=== PATIENT | male | born 1970 | race Caucasian/White ===

== ENCOUNTER 2021-06-17 06:54 | Inpatient (IN) ==
[2021-06-17] MEDS ORDERED: HYDROmorphone INJ 1 MG/ML SYRINGE IM STA (07:09)
--- NOTE | 2021-06-17 07:17 | Emergency Department Note ---
History of Present Illness General Chief complaint: Back Injury/Pain Stated complaint: LWR BACK PAIN INTO BOTH LEGS Time Seen by Provider: 06/17/21 07:03 Source: patient Mode of arrival: ambulatory Limitations: no limitations History of Present Illness Maximum Pain Intensity: 9 This patient is a 51-year-old male who presents to the emergency department for evaluation of low back pain. Patient reports a history use with his low back and typically sees Dr. Bee. He states that he usually has numbness and pain in his legs after walking for long distance, however it has been getting worse over the past few weeks. Since last night, he has had pain and numbness at rest. He reports severe pain down both of his legs and a sensation of numbness. He denies any bowel/bladder incontinence. He denies any weakness. He rates his discomfort a 9/10. Home Medications Medication Instructions Recorded Confirmed Type allopurinol 100 mg tablet 100 mg PO QAM 03/01/21 06/17/21 History allopurinol 300 mg tablet 300 mg PO QAM 03/01/21 06/17/21 History losartan 50 mg-hydrochlorothiazide 1 tab PO QAM 03/01/21 06/17/21 History 12.5 mg tablet Allergies Allergy/AdvReac Type Severity Reaction Status Date / Time aspirin Allergy Intermediate Hives Verified 06/17/21 07:48 Past Med/Surg History Medical History Hx of gout Hypertension DORENE (obstructive sleep apnea) No device Spinal stenosis Surgical History H/O hernia repair History of tooth extraction Family History Other No family history of adverse response to anesthesia Social History Smoking Status: Never smoker Tobacco Type: Cigarettes Second Hand Exposure: Yes (SOME); Hx Alcohol Use: Yes Alcohol type: beer Hx Substance Use: No Preferred Language: Iranian Communication Ability: Effective Front End Developer Javascript Html Css Required: No Beliefs That Will Affect Care: None Current Living Situation: Spouse Current Living Situation Comment: AND SON/DAUGHTER N LAW AND GRANDAUGHTERS Other Information That Helps Us Care for You: No Feels Safe at Home: Yes Safety Concerns: Feels Safe At This Time Assistive Devices: Brace/Splint/Immobilizer Review of Systems A total of 10 systems reviewed and were otherwise negative Physical Exam Vital Signs Vital Signs - 24 hr 06/17/21 06:59 Temperature 36.3 C L Temperature Source Temporal Artery Scan Pulse Rate 68 Respiratory Rate 20 Respiratory Effort / Characteristics Non-Labored Respiratory Depth Normal Blood Pressure 159/98 H Blood Pressure Mean 118 Pulse Oximetry 97 Oxygen Delivery Method Room Air Sepsis Recent Fever Within 48 Hours No Sepsis New/Unexplained Change in Mental Status N/A Sepsis Action Taken by Nursing No Action Required VITALS: Vitals are noted on the nurse's note and reviewed by myself. GENERAL: This is a 51-year-old male, in no acute distress, well-developed well- nourished. SKIN: The skin was without rashes. EYES: Pupils equal round and reactive to light and accommodation. MOUTH: Mucous membranes moist. NECK: Supple without nuchal rigidity. HEART: Regular rate and rhythm without murmurs gallops or rubs. LUNGS: Clear to auscultation bilaterally without wheezes, rales or rhonchi. ABDOMEN: Positive bowel sounds x 4. Soft, nontender to palpation. MUSCULOSKELETAL: Moderate tenderness to palpation over the lumbar region of the back. Full range of motion of bilateral lower extremities. Strength 5/5 bilateral lower extremities. NEURO: Patient was alert and oriented to person place and time. Distal sensation intact. Course Administered Medications Allopurinol (Allopurinol 300 Mg Tab) 300 mg PO QAM [facility] Stop: 07/17/21 10:17 Last Admin: 06/17/21 11:24 Dose: 300 mg Documented by: [id number] HCTZ/Losartan Potassium (Losartan/Hctz 50/12.5mg Tab) 1 tab PO QAM [facility] Stop: 07/17/21 10:17 Last Admin: 06/17/21 11:24 Dose: 1 tab Documented by: [id number] Lactated Ringer's (Lr) 1,000 mls @ 75 mls/hr IV .[id number] [facility] Stop: 07/17/21 10:17 Last Admin: 06/17/21 11:22 Dose: 75 mls/hr Documented by: [id number] Discontinued Medications Hydromorphone HCl (Hydromorphone Inj 1 Mg/Ml Syringe) 1 mg IM NOW [facility] Stop: 06/17/21 07:10 Last Admin: 06/17/21 07:14 Dose: 1 mg Documented by: [id number] Medical Decision Making Differential Diagnosis Differential diagnosis includes viral conjunctivitis, bacterial conjunctivitis, acute glaucoma, corneal ulcer, iritis, uveitis, orbital cellulitis, periorbital cellulitis, hordeolum, chalazion, ophthalmic zoster, scleritis, episcleritis, among others. Home Medications Current Medication List: was personally reviewed by me Laboratory Data Attestation: I reviewed the patient's lab results. Result diagrams: 06/17/21 08:43 06/17/21 08:43 Lab Results 06/17/21 Range/Units 07:57 SARS-CoV-2, RNA, NAAT NEGATIVE (NEGATIVE) Imaging Data Attestation: I personally reviewed and interpreted this imaging study as foll ows: Radiologist's Impression: Lumbar Spine MRI 06/17/21 07:50 LUMBAR SPINE MRI HISTORY: Low back pain. radicular back pain TECHNIQUE: Multiplanar multisequence MRI of the lumbar spine was performed without the use of contrast. COMPARISON: None. FINDINGS: For the purpose of the report the L5-S1 disc space will be located on axial image 29 of 32.. No fractures of fixation within the lumbar spine. A 7 mm vertebral body hemangioma at L5 is noted. A 1 cm T2 and T1 hyperintense focus within the S3 vertebral body. This is nonspecific but could represent an atypical hemangioma. The conus terminates at the T12 level. Paravertebral soft tissues are unremarkable. Severe facet degenerative changes at L4-5. [id number] facet degenerative changes about the remaining lumbar spine. Mild disc space narrowing and disc desiccation at L2-L3, L4-5, and L5-S1. There is also moderate disc space narrowing at T11-T12. There is a small broad-based posterior disc bulge at T11-T12 resulting in mild central canal narrowing. L1-L2: No significant central canal or neural foraminal narrowing. L2-L3: Broad-based posterior disc bulge resulting in mild central canal and mild bilateral neural foraminal narrowing. L3-L4: Broad-based posterior disc bulge with ligamentum and facet hypertrophy resulting in moderate central canal and mild bilateral neural foraminal narrowing. L4-L5: Broad-based posterior disc bulge with severe ligamentum and facet hypertrophy resulting in severe central canal and mild bilateral neural fora zarina narrowing. The central canal demonstrates an AP diameter of approximately 5 mm. L5-S1: Small broad-based posterior disc bulge with a small left paracentral focal disc protrusion resulting in moderate central canal and mild left-sided neural foraminal narrowing. The small left paracentral focal disc protrusion abuts and likely compresses the transiting left S1 nerve root. IMPRESSION: 1. No fractures or subluxation within the lumbar spine. 2. Broad-based posterior disc bulge with severe ligamentum and facet hypertrophy at L4-5 resulting in severe central canal narrowing. 3. A small left paracentral focal disc protrusion at L5-S1 which abuts and likely compresses the transiting left S1 nerve root. There is also moderate central canal narrowing at this level. 4. Additional degenerative changes as described above. ACT 112: Negative or not required by law. Electronically signed by: Johnny Mueller M.D. 06/17/2021 10:36 AM MDM Narrative This patient is a 51-year-old male who presents to the emergency department for evaluation of severe back pain. Patient has a history of chronic low back pain which has been worsening recently. He now has numbness of the bilateral lower extremities. I did speak with Dr. Bee, the patient's spine surgeon, who recommended performing a stat MRI and admitting the patient for further care. COVID-19 swab was performed and was negative. Patient was admitted to Dr. Bee's service. Impression & Plan Bilateral lumbar radiculopathy Discharge Plan Visit Data Chief Complaint: Back Injury/Pain Stated Complaint: LWR BACK PAIN INTO BOTH LEGS ED Provider: Galen Guevara ED Midlevel Provider: Keke Cortez Discharge Problem: Bilateral lumbar radiculopathy Patient Disposition: Admitted As Inpatient Discharge Instructions Interventions: ED Discharge Assessment Last Done: 06/17/21 09:04
--- NOTE | 2021-06-17 08:32 | Hospitalist Consultation ---
Date of Consultation June 17, 2021 Assessment & Plan (1) Spinal stenosis: - Pain management, bowel regimen and DVT ppx per the primary team - PT/OT consults after surgery - Follow am CBC to monitor for acute blood loss, today hgb of 15 - If plans for surgery tomorrow then would make NPO after midnight - MRI lumbar spine reviewed: 1. No fractures or subluxation within the lumbar spine. 2. Broad-based posterior disc bulge with severe ligamentum and facet hypertrophy at L4-5 resulting in severe central canal narrowing. 3. A small left paracentral focal disc protrusion at L5-S1 which abuts and likely compresses the transiting left S1 nerve root. There is also moderate central canal narrowing at this level. (2) Hypertension: - Continue losartan/hctz (3) DORENE (obstructive sleep apnea): - Hx of such (4) Hx of gout: - Continue allopurinol (5) Obesity (BMI 35.0-39.9 without comorbidity): - BMI of 37.8, diet and exercise to be encouraged DVT ppx: - teds, scds CODE: Full Dispo: From home, likely to remain in the hospital x 2 days. Thank you for involving us in the care of Mr. Fiugeroa. Please do not hesitate to call with questions or concerns. At this time medicine service will follow along. Supervising Physician Co-Signing Physician Notes I saw this patient with the physician investment sales assistant on 06/17/21, I formulated the assessment and plan personally with the physician investment sales assistant and went over it with the patient. Physical Exam Gen-AAO x 3, NAD, Afebrile, Obese Head-NCAT, EOMI, PERRLA, Anicteric Sclera, No Posterior Pharyngeal Erythema Neck-Supple, No JVD, No Thyromegaly, No Masses, No LAD, No Bruits Lungs-Clear to Auscultation Bilaterally, No Rales, No Rhonchi, No Wheezing, No Crepitus Chest-No S4, +S1, +S2, No S3, No Murmurs, No Rubs, No Gallops, No Ectopy Abdomen-Soft, Bowel Sounds Present, Non Tender, Non Distended, No Hepatomegaly, No Splenomegaly, No Palpable Masses, No Rebound, No Rigidity, No Guarding Musculoskeletal-Full Range of Motion Bilaterally, No CVAT Extremities-No Cyanosis, No Clubbing, No Edema Nuero-Cranial Nerves II-XII grossly intact, Motor WNL, DTRs WNL, Strength WNL, Non Focal Psych-Normal Mood History of Present Illness Reason for Consultation: Medical management Requesting Physician: Dr. Bee Attending Physician: Dr. Kaur History of Present Illness This is a 51-year-old male with PMHx of HTN, gout, DORENE and spinal stenosis who presents today with worsening lower back pain radiating down both of his posterior parts of his legs. He has followed with Dr. Bee in the outpatient clinics. About 5 years ago he got a spinal injection which helped for quite a while, he second injection did not last as long. 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 Pt is unsure if he twisted wrong way or if he injured it to worsen the pain. He notices increased numbness in BLE with walking, by 100 ft distance he is very numb. Pt notes slight decrease in strength in his left leg compared to the right. In the past 3 weeks he has fallen 3 times, with the last being 1 week ago where he slipped on ice while working and hit the back of his head which caused a "goose egg" for a few days, but now is resolved. He denies any prodromal lightheadedness, palpitaitons, shortness of breath. Denies LOC, states it was unwitnessed, denies subsequent headaches, changes in vision, or trauma to other part of the body. He reports some urinary retention with having a slowly starting stream and feeling of having difficulty emptying at t imes. He denies any changes in bowel habits and moved them this morning. Pt is not on any blood thinners. Last took his medications this morning including allopurinol 400 mg daily and losartan/hcz 50/12.5. He denies tobacco use. Admits to drinking 2-4 beers at a time 3-4 times per week. He questioned if he could reduce allopurinol - discussed risk factors of alcohol promoting gout attacks and that he should attempt to reduce alcohol intake and discuss with PCP. Allergies Allergy/AdvReac Type Severity Reaction Status Date / Time aspirin Allergy Intermediate Hives Verified 06/17/21 07:48 Home Medications Medication Instructions Recorded Confirmed Type allopurinol 100 mg tablet 100 mg PO QAM 03/01/21 06/17/21 History allopurinol 300 mg tablet 300 mg PO QAM 03/01/21 06/17/21 History losartan 50 mg-hydrochlorothiazide 1 tab PO QAM 03/01/21 06/17/21 History 12.5 mg tablet Patient History Medical History Hx of gout Hypertension Obesity (BMI 35.0-39.9 without comorbidity) DORENE (obstructive sleep apnea) No device Spinal stenosis Surgical History H/O hernia repair History of tooth extraction Family History Other No family history of adverse response to anesthesia Social History Smoking Status: Never smoker Tobacco Type: Cigarettes Second Hand Exposure: Yes (SOME); Hx Alcohol Use: Yes Alcohol type: beer Hx Substance Use: No Preferred Language: Kiswahili Communication Ability: Effective Small Animal Veterinarian Required: No Beliefs That Will Affect Care: None marital status: Current Living Situation: Spouse Current Living Situation Comment: AND SON/DAUGHTER N LAW AND GRANDAUGHTERS How many Children do You have: 9 Other Information That Helps Us Care for You: No Feels Safe at Home: Yes and No Is there a partner from a previous relationship who is making you feel unsafe now?: No Any Concerns about Your Family Situation: No Would You Like to Speak to Someone About Your Situation: No Safety Concerns: Feels Safe At This Time Assistive Devices: None Review of Systems Review of Systems: Constitutional: No fever, sweats or chills Eyes: No diplopia, no worsening or blurred vision ENT: normal hearing, no trouble swallowing Respiratory: No cough, sputum, dyspnea at rest or on exertion Cardiovascular: No chest pain, tightness or palpitations Abdomen: No pain, nausea, vomiting, diarrhea or constipation Back: lower back pain as per HPI Musculoskeletal: As per HPI. Radiation of pain down bilateral posterior legs. No other joint pain, calf pain, swelling Neurologic: No weakness, numbness/tingling, or balance problems Psychiatric: No anxiety or depression Skin: No rash or itch Physical Exam Physical Exam: General: awake, alert, no apparent distress, obese with BMI 37.8 Head: Normocephalic, atraumatic ENT: PERRL, EOMI, no pharyngeal exudate, mucous membranes moist Chest: Clear to auscultation, on room air, no adventitious breath sounds Cardiac: Regular rate and rhythm, no murmur, no JVD, normal peripheral pulses, good capillary refill Abdominal: NABS x 4 quadrants, soft, nondistended, nontender to palpation, no rebound or guarding Extremities: Normal inspection, no peripheral edema or erythema, calfs nontender to palpation Psych: Normal mood and affect Neuro: AAO x 3, strength intact bilaterally and rated 5/5 but with strength discrepancy with left hip flexor being weaker than the right, left plantarflexion and dorsiflexion weaker than the right. Negative straight leg raise. No motor deficits, speech is clear, no peripheral sensory deficits Results & Data Results & Data ([facility]) Vital Signs (Past 12 Hours) Vital Signs Temp Pulse Resp BP Pulse Ox 06/17/21 06:59 36.3 C L 68 20 159/98 H 97 Laboratory Results 06/17/21 06/17/21 06/17/21 08:43 08:43 07:57 WBC 6.30 RBC 4.89 Hgb 15.0 Hct 42.9 MCV 87.7 MCH 30.7 MCHC 35.0 RDW Std Deviation 42.0 RDW Coeff of Kae 13.1 Plt Count 197 MPV 10.3 Immature Gran % (Auto) 0.2 Neut % (Auto) 48.1 Lymph % (Auto) 33.2 Lea % (Auto) 10.5 Eos % (Auto) 7.5 Baso % (Auto) 0.5 Neut # (Auto) 3.04 Lymph # (Auto) 2.09 Lea # (Auto) 0.66 H Eos # (Auto) 0.47 Baso # (Auto) 0.03 Immature Gran # (Auto) 0.01 Sodium 138 Potassium 4.4 Chloride 107 Carbon Dioxide 24 Anion Gap 7 BUN 19 Creatinine 1.06 Est Cr Clr Drug Dosing 105.6 Est GFR ( Amer) 93.1 Est GFR (Non-Af Amer) 80.3 BUN/Creatinine Ratio 17.9 Glucose 103 H Calcium 8.0 L Total Bilirubin 0.3 AST 29 ALT 42 Alkaline Phosphatase 71 Total Protein 6.9 Albumin 4.1 Globulin 2.8 Albumin/Globulin Ratio 1.5 SARS-CoV-2, RNA, NAAT NEGATIVE Diagnostic Findings Lumbar Spine MRI 06/17/21 07:50 LUMBAR SPINE MRI HISTORY: Low back pain. radicular back pain TECHNIQUE: Multiplanar multisequence MRI of the lumbar spine was performed without the use of contrast. COMPARISON: None. FINDINGS: For the purpose of the report the L5-S1 disc space will be located on axial image 29 of 32.. No fractures of fixation within the lumbar spine. A 7 mm vertebral body hemangioma at L5 is noted. A 1 cm T2 and T1 hyperintense focus within the S3 kelly tebral body. This is nonspecific but could represent an atypical hemangioma. The conus terminates at the T12 level. Paravertebral soft tissues are unremarkable. Severe facet degenerative changes at L4-5. [id number]-he-[id number] facet degenerative changes about the remaining lumbar spine. Mild disc space narrowing and disc desiccation at L2-L3, L4-5, and L5-S1. There is also moderate disc space narrowing at T11-T12. There is a small broad-based posterior disc bulge at T11- T12 resulting in mild central canal narrowing. L1-L2: No significant central canal or neural foraminal narrowing. L2-L3: Broad-based posterior disc bulge resulting in mild central canal and mild bilateral neural foraminal narrowing. L3-L4: Broad-based posterior disc bulge with ligamentum and facet hypertrophy resulting in moderate central canal and mild bilateral neural foraminal narrowing. L4-L5: Broad-based posterior disc bulge with severe ligamentum and facet hypertrophy resulting in severe central canal and mild bilateral neural foraminal narrowing. The central canal demonstrates an AP diameter of approximately 5 mm. L5-S1: Small broad-based posterior disc bulge with a small left paracentral focal disc protrusion resulting in moderate central canal and mild left-sided neural foraminal narrowing. The small left paracentral focal disc protrusion abuts and likely compresses the transiting left S1 nerve root. IMPRESSION: 1. No fractures or subluxation within the lumbar spine. 2. Broad-based posterior disc bulge with severe ligamentum and facet hypertrophy at L4-5 resulting in severe central canal narrowing. 3. A small left paracentral focal disc protrusion at L5-S1 which abuts and likely compresses the transiting left S1 nerve root. There is also moderate central canal narrowing at this level. 4. Additional degenerative changes as described above. ACT 112: Negative or not required by law. Electronically signed by: Johnny Mueller M.D. 06/17/2021 10:36 AM
[2021-06-17 08:56] LABS: Basophils # (auto) 0.03 K/uL (0-0.2); Basophils % (auto) 0.5 %; Eosinophils # (auto) 0.47 K/uL (0-0.5); Eosinophils % (auto) 7.5 %; Hematocrit (blood only) 42.9 % (42-52); Immature Granulocytes # (auto) 0.01 K/uL (0.00-0.02); Immature Granulocytes % (auto) 0.2 %; Lymphocytes # (auto) 2.09 K/uL (1.2-3.4); Lymphocytes % (auto) 33.2 %; Mean Corpuscular Hemoglobin 30.7 pg (25-34); Mean Corpuscular Volume 87.7 fL (80-100); Mean Platelet Volume 10.3 fL (7.4-10.4); Monocytes # (auto) 0.66 K/uL (0.11-0.59); Monocytes % (auto) 10.5 %; Neutrophils # (auto) 3.04 K/uL (1.4-6.5); Neutrophils % (auto) 48.1 %; Platelet Count 197 K/uL (130-400); RDW Coefficient of Variation 13.1 % (11.5-14.5); Red Blood Count 4.89 M/uL (4.7-6.1)
[2021-06-17 09:22] LABS: Albumin Globulin Ratio 1.5 (0.9-2); Albumin Level 4.1 gm/dl (3.4-5.0); BUN Creatinine Ratio 17.9 (10-20); Bilirubin,Total 0.3 mg/dl (0.2-1.0); Creatinine Clr Calc Pharmacy 105.6 ml/min; Est GFR (African American) 93.1 ml/min; Est GFR (Non-African American) 80.3 ml/min; Globulin 2.8 gm/dl (2.5-4.0); Potassium 4.4 mmol/L (3.5-5.1); Total Protein 6.9 gm/dl (6.0-8.3)
[2021-06-17] MEDS ORDERED: MAGNESIUM HYDROXIDE SUSP 30 ML UDC PO PRN (10:18)
[2021-06-17] MEDS ORDERED: ACETAMINOPHEN 1,000 MG/100 ML VIAL IV PRN (10:18)
[2021-06-17] MEDS ORDERED: LORazepam 0.5 MG TAB PO PRN (10:18)
[2021-06-17] MEDS ORDERED: ONDANSETRON 4 MG OD TAB PO PRN (10:18)
[2021-06-17] MEDS ORDERED: traMADol HCL 50 MG TABLET PO PRN (10:18)
[2021-06-17] MEDS ORDERED: hydrOXYzine HCl 25 MG TAB PO PRN (10:18)
[2021-06-17] MEDS ORDERED: LORazepam 2 MG/1 ML VIAL IV PRN (10:18)
[2021-06-17] MEDS ORDERED: oxyCODONE HCL IR 5 MG TAB (IMMEDIATE RELEASE) PO PRN (10:18)
[2021-06-17] MEDS ORDERED: HYDROmorphone INJ 0.5 MG/0.5 ML SYR IV PRN (10:18)
[2021-06-17] MEDS ORDERED: HYDROmorphone INJ 1 MG/ML SYRINGE IV PRN (10:18)
[2021-06-17] MEDS ORDERED: ALUMINUM/MAGNESIUM SUSP 30 ML UDC PO PRN (10:18)
[2021-06-17] MEDS ORDERED: ONDANSETRON INJ 2 MG/ML 2 ML VIAL IV PRN (10:18)
[2021-06-17] MEDS ORDERED: METOCLOPRAMIDE HCL INJ 5 MG/ML 2 ML VIAL IV PRN (10:18)
[2021-06-17] MEDS ORDERED: PROMETHAZINE HCL 12.5 MG in SODIUM CHLORIDE 0.9% 50 ML IV PRN (10:18)
[2021-06-17] MEDS ORDERED: ACETAMINOPHEN 500 MG TAB PO PRN (10:18)
[2021-06-17] MEDS ORDERED: NALOXONE HCL 0.4 MG/1 ML VIAL/CARP IV PRN (10:18)
--- NOTE | 2021-06-17 10:38 | Magnetic Resonance Report ---
LUMBAR SPINE MRI HISTORY: Low back pain. radicular back pain TECHNIQUE: Multiplanar multisequence MRI of the lumbar spine was performed without the use of contras t. COMPARISON: None. FINDINGS: For the purpose of the report the L5-S1 disc space will be located on axial image 29 of 32. . No fractures of fixation within the lumbar spine. A 7 mm vertebral body hemangioma at L5 is noted. A 1 cm T2 and T1 hyperintense focus within the S3 vertebral body. This is nonspecific but could represe nt an atypical hemangioma. The conus terminates at the T12 level. Paravertebral soft tissues are unre markable. Severe facet degenerative changes at L4-5. [id number] facet degenerative changes abou t the remaining lumbar spine. Mild disc space narrowing and disc desiccation at L2-L3, L4-5, and L5-S 1. There is also moderate disc space narrowing at T11-T12. There is a small broad-based posterior dis c bulge at T11-T12 resulting in mild central canal narrowing. L1-L2: No significant central canal or neural foraminal narrowing. L2-L3: Broad-based posterior disc bulge resulting in mild central canal and mild bilateral neural for aminal narrowing. L3-L4: Broad-based posterior disc bulge with ligamentum and facet hypertrophy resulting in moderate c entral canal and mild bilateral neural foraminal narrowing. L4-L5: Broad-based posterior disc bulge with severe ligamentum and facet hypertrophy resulting in sev ere central canal and mild bilateral neural foraminal narrowing. The central canal demonstrates an AP diameter of approximately 5 mm. L5-S1: Small broad-based posterior disc bulge with a small left paracentral focal disc protrusion res ulting in moderate central canal and mild left-sided neural foraminal narrowing. The small left parac entral focal disc protrusion abuts and likely compresses the transiting left S1 nerve root. IMPRESSION: 1. No fractures or subluxation within the lumbar spine. 2. Broad-based posterior disc bulge with severe ligamentum and facet hypertrophy at L4-5 resulting in severe central canal narrowing. 3. A small left paracentral focal disc protrusion at L5-S1 which abuts and likely compresses the lemon siting left S1 nerve root. There is also moderate central canal narrowing at this level. 4. Additional degenerative changes as described above. ACT 112: Negative or not required by law. Electronically signed by: Johnny Mueller M.D. 06/17/2021 10:36 AM
[2021-06-17] MEDS: LACTATED RINGER'S 1,000 ML IV SCH (11:22)
[2021-06-17] MEDS: LOSARTAN/HCTZ 50/12.5MG TAB PO SCH (11:24)
[2021-06-17] MEDS: allopurinoL 300 MG TAB PO SCH (11:24)
--- NOTE | 2021-06-17 12:49 | History & Physical Report ---
Date of Service June 17, 2021 Assessment & Plan (1) Neurogenic claudication due to lumbar spinal stenosis: Plan: Assessment updated MRI lumbar spine does demonstrate consistent severe spinal stenosis at L4-L5 with facet hypertrophy and evidence of facet cyst on the ri ght. He exhibits stenosis L5-S1 with disc protrusion and least moderate to severe disease at L3-L4. At this point he presents with marked decline in status multiple falls evidence of weakness as well as perineal numbness and urinary retention indicative of impending cauda syndrome. Subsequently recommending an urgent lumbar decompression and fusion L3-L4 L4-5 L5-S1. He would require wide decompression, facetectomy creating iatrogenic instability therefore requiring stabilization by way of fusion. Risk benefits pros cons alternatives were outlined in detail. At this time we will have him evaluated by the anesthesia department and internal medicine for medical stability and plan for surgery soon as possible tomorrow. Admission and Anticipated Discharge Date Admission Date: June 17, 2021 History of Present Illness Chief Complaint: Severe back and bilateral leg pain. Primary Care Provider: Medina Gudino DO This is a 51-year-old male that is well-known to me. He progresses with severe decline in status over the past several days. He states he is fallen in the past few days secondary to leg weakness. Describes pain at lumbosacral junction rating down the lower extremities from the buttock posterior thigh below the knee into the feet. Markedly exacerbated with prolonged standing and walking. He can only ambulate short distances and must lean forward to obtain any relief. Of concern he is noting significant numbness in the perineal area that when he stands for any even short period of time. He is describing urinary retention. He has failed extensive course of nonoperative care over the past year including physical therapy and lumbar injections. He is now progressed to the point that he is no longer able to function. Allergies Allergy/AdvReac Type Severity Reaction Status Date / Time aspirin Allergy Intermediate Hives Verified 06/17/21 07:48 Home Medications Medication Instructions Recorded Confirmed Type allopurinol 100 mg tablet 100 mg PO QAM 03/01/21 06/17/21 History allopurinol 300 mg tablet 300 mg PO QAM 03/01/21 06/17/21 History losartan 50 mg-hydrochlorothiazide 1 tab PO QAM 03/01/21 06/17/21 History 12.5 mg tablet Past Med/Surg History Medical History Hx of gout Hypertension DORENE (obstructive sleep apnea) No device Spinal stenosis Surgical History H/O hernia repair History of tooth extraction Family History Other No family history of adverse response to anesthesia Social History Smoking Status: Never smoker Tobacco Type: Cigarettes Second Hand Exposure: Yes (SOME); Hx Alcohol Use: Yes Alcohol type: beer Hx Substance Use: No Preferred Language: Uzbek Communication Ability: Effective Trauma Coordinator Required: No Beliefs That Will Affect Care: None Current Living Situation: Spouse Current Living Situation Comment: AND SON/DAUGHTER N LAW AND GRANDAUGHTERS Other Information That Helps Us Care for You: No Feels Safe at Home: Yes Safety Concerns: Feels Safe At This Time Assistive Devices: Brace/Splint/Immobilizer Physical Exam Physical Exam: On exam is comfortable lying in bed. He prefers to a head of bed elevated. He exhibits 4-/5 left dorsiflexion extensor pollicis longus and L4-5 right dorsiflexion extensor hallucis longus. Quadriceps are symmetric and intact but of 4/5. Sensory is diminished. Deep tendon reflexes absent. Results & Data ([facility]) Vital Signs (Past 12 Hours) Vital Signs Temp Pulse Pulse Resp BP BP Pulse Ox 06/17/21 10:42 36.7 C 57 L 16 137/92 97 06/17/21 10:18 36.7 C 57 L 16 137/92 97 06/17/21 08:49 60 20 156/98 H 98 06/17/21 06:59 36.3 C L 68 20 159/98 H 97 Code Status & VTE Plan VTE Prophylaxis Plan VTE Prophylaxis will be ordered: Yes
--- NOTE | 2021-06-17 15:41 | Anesthesiology Consultation ---
Date of Service June 17, 2021 Assessment & Plan (1) Encounter for pre-operative examination: Chart Review Chart Review: Acceptable Risk for Surgery and Patient NOT seen in Pre Admission Testing Consults Requested none History Surgery Operation Date: 06/18/21 07:45 Proposed Procedures p L3-S1 Lumbar Decompression Fusion - Gary Bee DO Height/Weight Height: 5 ft 10 in Weight: 119.5 kg Allergies Allergy/AdvReac Type Severity Reaction Status Date / Time aspirin Allergy Intermediate Hives Verified 06/17/21 07:48 Medications Home Medications Medication Instructions Recorded Confirmed Last Taken allopurinol 100 mg tablet 100 mg PO QAM 03/01/21 06/17/21 Unknown allopurinol 300 mg tablet 300 mg PO QAM 03/01/21 06/17/21 Unknown losartan 50 mg-hydrochlorothiazide 1 tab PO QAM 03/01/21 06/17/21 Unknown 12.5 mg tablet Active Medications Generic Name Dose Route Start Last Admin Trade Name Freq PRN Reason Stop Dose Admin Allopurinol 300 mg 06/17/21 10:18 06/17/21 11:24 Allopurinol 300 Mg Tab PO 07/17/21 10:17 300 mg QAM ANDREEA Administration HCTZ/Losartan Potassium 1 tab 06/17/21 10:18 06/17/21 11:24 Losartan/Hctz 50/12.5mg Tab PO 07/17/21 10:17 1 tab QAM ANDREEA Administration Lactated Ringer's 1,000 mls @ 75 mls/hr 06/17/21 10:18 06/17/21 11:22 Lr IV 07/17/21 10:17 75 mls/hr .[id number] ANDREEA Administration Past Medical History Medical History Hx of gout Hypertension Obesity (BMI 35.0-39.9 without comorbidity) DORENE (obstructive sleep apnea) No device Spinal stenosis Past Family History Family History Other No family history of adverse response to anesthesia Past Surgical History Surgical History H/O hernia repair History of tooth extraction Social History Smoking Status: Never smoker tobacco type: cigarettes and smokeless tobacco Hx Alcohol Use: Yes Alcohol type: beer alcohol intake frequency: a few times a week Hx Substance Use: No substance use type: does not use Physical Exam Vital Signs Last Vital Signs Temp 36.7 C 06/17/21 10:42 Pulse 57 L 06/17/21 10:42 Resp 16 06/17/21 10:42 BP 137/92 06/17/21 10:42 Pulse Ox 97 06/17/21 10:42 Testing Laboratory Results 06/17/21 08:43 06/17/21 08:43 Electrocardiogram Date: 03/06/21 DICTATED BY:Gwyn Pham MD Test Reason : Blood Pressure : / mmHG Vent. Rate : 053 BPM Atrial Rate : 053 BPM P-R Int : 182 ms QRS Dur : 084 ms QT Int : 450 ms P-R-T Axes : 050 034 070 degrees QTc Int : 422 ms Sinus bradycardia Otherwise normal ECG No previous ECGs available Confirmed by Gwyn Pham ([id number]) on 03/06/2021 6:33:43 AM Referred By: Gary Bee Confirmed By:Gwyn Pham
[2021-06-18] MEDS: LACTATED RINGER'S 1,000 ML IV SCH (00:12)
[2021-06-18] MEDS ORDERED: ePHEDrine sulfate 50 MG/ML AMP ONE (07:00)
[2021-06-18] MEDS ORDERED: LIDOCAINE 2% 2 ML VIAL/AMP(20MG/ML) INFIL ONE (07:00)
[2021-06-18] MEDS ORDERED: NEOSTIGMINE METHYLSULFATE 1 MG/ML 10ML VIAL ONE (07:00)
[2021-06-18] MEDS ORDERED: fentaNYL citrate 100 MCG/2 ML VIAL ONE (07:00)
[2021-06-18] MEDS ORDERED: MIDAZOLAM HCL 1 MG/ML 2ML VIAL ONE (07:00)
[2021-06-18] MEDS ORDERED: ONDANSETRON INJ 2 MG/ML 2 ML VIAL ONE (07:00)
[2021-06-18] MEDS ORDERED: PHENYLEPHRINE 100MCG/ML 5ML SYR ONE (07:00)
[2021-06-18] MEDS ORDERED: LARYING-O-JET KIT (LTA) ONE (07:00)
[2021-06-18] MEDS ORDERED: DEXAMETHASONE SOD INJ 4 MG/ML VIAL ONE (07:00)
[2021-06-18] MEDS ORDERED: GLYCOPYRROLATE 0.2 MG/ML VIAL ONE (07:00)
[2021-06-18] MEDS ORDERED: PROPOFOL IV EMULSION 10 MG/ML 20 ML VIAL IV ONE (07:00)
[2021-06-18] MEDS ORDERED: ROCURONIUM BROMIDE 10 MG/ML 5 ML VIAL IV ONE ×4 (07:00→10:58)
[2021-06-18] MEDS ORDERED: ceFAZolin 330 MG/ML 1 GM VIAL ONE (07:19)
[2021-06-18] MEDS ORDERED: BUPIVACAINE/EPINEPHRINE 0.25% 1:200,000 30 ML VIAL ONE (07:19)
[2021-06-18] MEDS ORDERED: HYDROmorphone INJ 1 MG/ML SYRINGE IV PRN ×2 (07:22→12:09)
[2021-06-18] MEDS ORDERED: ONDANSETRON INJ 2 MG/ML 2 ML VIAL IV PRN ×2 (07:22→12:09)
[2021-06-18] MEDS ORDERED: ATROPINE SULFATE 0.1 MG/ML 10ML SYR IV PRN (07:22)
--- NOTE | 2021-06-18 07:36 | History & Physical Bridge Note ---
Date of Service June 18, 2021 History & Physical Bridge Note I have examined the patient, reviewed the History & Physical and in the interval since the performance of the History & Physical I have noted the following changes of clinical significance: no changes noted Lumbar decompression and fusion L3-S1
[2021-06-18] MEDS ORDERED: HYDROmorphone INJ 2 MG/ML SYR/VIAL ONE (08:27)
[2021-06-18] MEDS: LOSARTAN/HCTZ 50/12.5MG TAB PO SCH (08:58)
[2021-06-18] MEDS: allopurinoL 300 MG TAB PO SCH (08:58)
[2021-06-18] MEDS ORDERED: FLOSEAL HEMOSTATIC MATRIX 10ML TOP ONE (10:42)
--- NOTE | 2021-06-18 11:14 | Operative Report ---
Post Operative Report Pre & Post Diagnosis Operation Date: 06/18/21 07:45 Pre-Op Diagnosis: Neurogenic claudication due to lumbar spinal stenosis Post-Op Diagnosis: Neurogenic claudication due to lumbar spinal stenosis I identified the patient and participated in the time-out.: Yes Procedure Operation Date: 06/18/21 07:45 Actual Procedures #1 lumbar decompression bilateral medial facetectomies and foraminotomies L3-L4 L4-5 L5-S1. #2 posterior spinal fusion L3-L4 L4-L5 L5-S1. #3 placed posterior segmental instrumentation L3-S1. #4 interbody fusion L4-5 L5-S1. #5 placement of titanium 13 x 26 mm cage at L4-L5 and 12 x 26 mm cage at L5-S1. #6 placement locally harvested morselized autograft in the posterior gutters. #7 placement of I factor in the interbody space and infuse collagen sponge with master graft in the posterior lateral gutters. Surgeon Gary Bee, DO Webmethods Consultant None Estimated Blood Loss 400 Findings See Below The patient is 5 foot 10 weighing over 119 kg with a BMI in excess of 37. Patient's body habitus did contribute to significant technical difficulty requiring her deepest retractors longus instruments in order to perform his procedure. This had at least 50% increased operative time. Specimens None Indications This is a 51-year-old male who presents with marked decline in status. He is describing leg pain and weakness with several falls secondary to weakness. He also has perineal numbness on occasion. Description of Procedure Patient was met with identified informed consent obtained. Patient was then taken to the operative suite underwent a patient placed in a prone position on the Yosi table on top of the Johan frame. All bony prominences well-padded eyes inspected to ensure no external pressure placed upon the bed at this point the lumbar spine was prepped and draped in normal sterile fashion. Sharp dissection with the assistance of Bovie cautery was performed down to and exposing the lamina and transverse processes of L3-L4-L5 and the sacral ala bilaterally. From a caudal cephalad fashion complete laminectomy of L5 L4 and L3 was performed including bilateral medial facetectomies and foraminotomies addressing severe spinal stenosis. Pedicle screws were then placed in L3-L4-L5 and S1 levels bilaterally with assistance of fluoroscopy and the properly sized nadira placed. By way of a transfemoral approach on the left complete discectomy of L5-S1 was performed endplates curetted to subcortically bone and a 12 x 26 mm titanium cage filled I factor tapped in position. Then proceeded L4-[address] of transfer approach and left complete discectomy performed endplates curetted to subcortically bone and a 13 x 26 mm titanium cage filled I factor tapped in position. Rods were then compressed locked in final position bilaterally. The transverse processes of L3-L4-L5 and the sacral ala burred to subcortical bleeding bone. Infuse collagen sponge master graft local autograft was placed in the posterior gutters. 15 round CAMILA drain inserted. The incision was then closed with 1 Vicryl fascia 2-0 Vicryl subcutaneously and 4 Monocryl for final skin closure. Steri-Strip sterile dressing was placed. Patient will continue PACU stable addition. Please note spinal cord monitoring visualized at the procedure no changes noted. I attest to the content of the Intraoperative Record and any orders documented therein. Any exceptions are noted below.
--- NOTE | 2021-06-18 11:21 | Fluoroscopy Report ---
FL lumbar spine 2-3V CLINICAL HISTORY: L3-S1 posterior decompression and fusion COMPARISON STUDY: Lumbar spine MR 06/17/2021. FLUOROSCOPY TIME: 37 seconds. FINDINGS: 3 fluoroscopic spot images of the lumbar spine demonstrate posterior decompression and fusi on from L3 through S1 with pedicle screws and rods. The hardware appears intact. Disc spaces are note d at L4-5 and L5-S1. IMPRESSION: Fluoroscopic assistance provided for L3-S1 posterior decompression and fusion. ACT 112: Negative or not required by law. Electronically signed by: Johnny Mueller M.D. 06/18/2021 11:20 AM
[2021-06-18] MEDS ORDERED: ACETAMINOPHEN 500 MG TAB PO PRN (12:09)
[2021-06-18] MEDS ORDERED: LORazepam 0.5 MG TAB PO PRN (12:09)
[2021-06-18] MEDS ORDERED: MAGNESIUM HYDROXIDE SUSP 30 ML UDC PO PRN (12:09)
[2021-06-18] MEDS ORDERED: diphenhydrAMINE Capsule 25 MG CAP PO PRN (12:09)
[2021-06-18] MEDS ORDERED: bisacodyL 10 MG SUPP PR PRN (12:09)
[2021-06-18] MEDS ORDERED: DO NOT ADMINISTER FLU VACCINE PRN (12:09)
[2021-06-18] MEDS ORDERED: ONDANSETRON 4 MG OD TAB PO PRN (12:09)
[2021-06-18] MEDS ORDERED: DO NOT ADMINISTER PNEUMOCOCCAL VACCINE PRN (12:09)
[2021-06-18] MEDS ORDERED: LORazepam 2 MG/1 ML VIAL IV PRN (12:09)
[2021-06-18] MEDS ORDERED: ACETAMINOPHEN 1,000 MG/100 ML VIAL IV PRN (12:09)
[2021-06-18] MEDS ORDERED: hydrOXYzine HCl 25 MG TAB PO PRN (12:09)
[2021-06-18] MEDS ORDERED: PHARMACY GLYCEMIC MGMT CONSULT PRN (12:09)
[2021-06-18] MEDS ORDERED: FAMOTIDINE 20 MG TAB PO PRN (12:09)
[2021-06-18] MEDS ORDERED: HYDROmorphone INJ 0.5 MG/0.5 ML SYR IV PRN (12:09)
[2021-06-18] MEDS ORDERED: NALOXONE HCL 0.4 MG/1 ML VIAL/CARP IV PRN (12:09)
[2021-06-18] MEDS ORDERED: SOD PHOSPHATE/SOD BIPHOSPHATE ENEMA 132 ML BTL PR PRN (12:09)
[2021-06-18] MEDS ORDERED: PROMETHAZINE HCL 12.5 MG in SODIUM CHLORIDE 0.9% 50 ML IV PRN (12:09)
[2021-06-18] MEDS ORDERED: METOCLOPRAMIDE HCL INJ 5 MG/ML 2 ML VIAL IV PRN (12:09)
[2021-06-18] MEDS ORDERED: ALUMINUM/MAGNESIUM SUSP 30 ML UDC PO PRN (12:09)
[2021-06-18] MEDS ORDERED: oxyCODONE HCL IR 5 MG TAB (IMMEDIATE RELEASE) PO PRN (12:09)
[2021-06-18] MEDS ORDERED: DEXTROSE 50% 50 ML SYRINGE IV PRN (12:30)
[2021-06-18] MEDS ORDERED: INSULIN ASPART PER UNIT SC SCH (12:30)
[2021-06-18] MEDS ORDERED: GLUCAGON FOR INJ 1 MG VIAL IM PRN (12:30)
[2021-06-18] MEDS ORDERED: GLUCOSE 10 TABS/TUBE PO PRN (12:30)
[2021-06-18] MEDS ORDERED: GLUCOSE 40% GEL 15 GM TUBE PO PRN (12:30)
[2021-06-18] MEDS ORDERED: CARBOHYDRATES FOR HYPOGLYCEMIA PO PRN (12:30)
[2021-06-18] MEDS: SODIUM CHLORIDE 0.9% 1000ML 1,000 ML IV SCH ×2 (12:39→19:53)
--- NOTE | 2021-06-18 12:43 | Anesthesiology Progress Note ---
Date of Service June 18, 2021 Anesthesia Post Procedure Vital Signs Vital Signs: Temp Pulse Pulse Resp BP BP Pulse Ox 06/18/21 12:41 55 L 16 109/70 97 06/18/21 12:10 36.8 C 51 L 18 122/80 95 06/18/21 11:55 36.6 C 55 L 12 130/69 92 06/18/21 11:45 66 17 125/75 93 06/18/21 11:35 60 14 95/62 L 99 06/18/21 11:25 64 14 111/67 100 06/18/21 11:19 37.0 C 73 14 132/90 99 06/18/21 07:05 36.4 C L 45 L 20 153/85 H 98 06/17/21 22:06 36.6 C 45 L 16 152/90 H 96 06/17/21 15:44 36.5 C 47 L 16 155/82 H 97 Pain Intensity Back: Pain Intensity: 5 Transfer of Care Handoff Completed per policy Notes Mental Status: alert / awake / arousable Patient Amnestic to Procedure: Yes Nausea / Vomiting: adequately controlled Pain: adequately controlled Airway Patency, RR, SpO2: stable & adequate BP & HR: stable & adequate Hydration State: stable & adequate Anesthetic Complications: no major complications apparent
[2021-06-18] MEDS: KETOROLAC 30 MG/ML VIAL IV SCH ×2 (13:45→17:54)
--- NOTE | 2021-06-18 14:45 | Hospitalist Progress Note ---
Date of Service June 18, 2021 Assessment & Plan (1) Spinal stenosis: Plan: Status post lumbar decompression fusion L3-S1 by Dr. Bee, POD #0 EBL 400 mL Tolerated procedure well Pain/wound management per orthopedic Activity and therapy as directed by orthopedics Encourage incentive spirometry and wean off oxygen as able Monitor hemoglobin, preop 13.0 remove tavera in a.m. (2) Hypertension: Plan: Blood pressure on low side postoperatively Hold losartan/HCTZ Reevaluate in a.m. (3) Hx of gout: Plan: Continue allopurinol (4) Obesity (BMI 35.0-39.9 without comorbidity): Plan: BMI of 37.8, diet and exercise to be encouraged DVT ppx: teds, scds CODE: Full Dispo: From home, likely to remain in the hospital x 2 days. Patient was seen and examined in collaboration with, Dr. Kaur, please see addendum Thank you for this consultation. We will follow the patient with you during their hospital stay. You can reach a member of the [facility] Hospitalist Team 03/11 via hospitalist role on tiger text. Admission and Anticipated Discharge Date Admission Date: June 17, 2021 Supervising Physician Co-Signing Physician Notes I saw this patient with the physician studio assistant on 06/17/21, I formulated the assessment and plan personally with the physician studio assistant and went over it with the patient. Physical Exam Gen-AAO x 3, NAD, Afebrile, Obese Head-NCAT, EOMI, PERRLA, Anicteric Sclera, No Posterior Pharyngeal Erythema Neck-Supple, No JVD, No Thyromegaly, No Masses, No LAD, No Bruits Lungs-Clear to Auscultation Bilaterally, No Rales, No Rhonchi, No Wheezing, No Crepitus Chest-No S4, +S1, +S2, No S3, No Murmurs, No Rubs, No Gallops, No Ectopy Abdomen-Soft, Bowel Sounds Present, Non Tender, Non Distended, No Hepatomegaly, No Splenomegaly, No Palpable Masses, No Rebound, No Rigidity, No Guarding Musculoskeletal-Full Range of Motion Bilaterally, No CVAT Extremities-No Cyanosis, No Clubbing, No Edema Nuero-Cranial Nerves II-XII grossly intact, Motor WNL, DTRs WNL, Strength WNL, Non Focal Psych-Normal Mood Subjective Pt was seen and examined in room 352-1. Post op lumbar Surgery by Dr. Bee. Pt is very drowsy. Has mild incisional discomfort but not radicular sx. Denies f/c/s, chest pain, sob, n/v/d, abd pain. He has tavera cath in place. Review of Systems Review of Systems: All systems reviewed & are unremarkable except as noted in HPI & below Physical Exam Physical Exam: Gen: WD/WN, NAD, A&O x3 HEENT: Normocephalic, atraumatic, conjunctivae moist, sclerae anicteric, mucous membranes moist. Lung: Clear to Auscultation bilaterally, no wheezes/rales/rhonchi Heart: Regular rate, regular rhythm, no murmurs, rubs, or gallops Abdomen: Soft, NT, ND +BS x 4 Extremities: No edema Skin: Warm, no rash, negative turgor. Results & Data Results & Data ([facility]) Vital Signs (Past 12 Hours) Vital Signs Temp Pulse Pulse Resp BP BP Pulse Ox 06/18/21 14:10 36.5 C 69 18 118/74 99 06/18/21 13:17 36.7 C 62 16 115/74 97 06/18/21 12:41 55 L 16 109/70 97 06/18/21 12:10 36.8 C 51 L 18 122/80 95 06/18/21 11:55 36.6 C 55 L 12 130/69 92 06/18/21 11:45 66 17 125/75 93 06/18/21 11:35 60 14 95/62 L 99 06/18/21 11:25 64 14 111/67 100 06/18/21 11:19 37.0 C 73 14 132/90 99 06/18/21 07:05 36.4 C L 45 L 20 153/85 H 98 Laboratory Results Short CBC 06/17/21 06/17/21 06/17/21 Range/Units 07:57 08:43 08:43 RBC 4.89 (4.7-6.1) M/uL MCV 87.7 (80-100) fL MCH 30.7 (25-34) pg MCHC 35.0 (32-36) g/dL RDW Std Deviation 42.0 (36.4-46.3) fL RDW Coeff of Kae 13.1 (11.5-14.5) % MPV 10.3 (7.4-10.4) fL Immature Gran % (Auto) 0.2 % Neut % (Auto) 48.1 % Lymph % (Auto) 33.2 % [place] % (Auto) 10.5 % Eos % (Auto) 7.5 % Baso % (Auto) 0.5 % Neut # (Auto) 3.04 (1.4-6.5) K/uL Lymph # (Auto) 2.09 (1.2-3.4) K/uL [place] # (Auto) 0.66 H (0.11-0.59) K/uL Eos # (Auto) 0.47 (0-0.5) K/uL Baso # (Auto) 0.03 (0-0.2) K/uL Immature Gran # (Auto) 0.01 (0.00-0.02) K/uL Sodium 138 (136-145) mmol/L Potassium 4.4 (3.5-5.1) mmol/L Chloride 107 (98-107) mmol/L Carbon Dioxide 24 (21-32) mmol/L Anion Gap 7 (3-11) BUN 19 (6-23) mg/dl Creatinine 1.06 (0.6-1.4) mg/dl Est Cr Clr Drug Dosing 105.6 ml/min Est GFR ( Amer) 93.1 ml/min Est GFR (Non-Af Amer) 80.3 ml/min BUN/Creatinine Ratio 17.9 (10-20) Glucose 103 H (70-99(Fasting)) mg/dl Calcium 8.0 L (8.5-10.1) mg/dl Total Bilirubin 0.3 (0.2-1.0) mg/dl AST 29 (13-39) U/L ALT 42 (7-52) U/L Alkaline Phosphatase 71 (34-104) U/L Total Protein 6.9 (6.0-8.3) gm/dl Albumin 4.1 (3.4-5.0) gm/dl Globulin 2.8 (2.5-4.0) gm/dl Albumin/Globulin Ratio 1.5 (0.9-2) SARS-CoV-2, RNA, NAAT NEGATIVE (NEGATIVE) Diagnostic Findings Lumbar Spine X-Ray 06/18/21 07:45 FL lumbar spine 2-3V CLINICAL HISTORY: L3-S1 posterior decompression and fusion COMPARISON STUDY: Lumbar spine MR 06/17/2021. FLUOROSCOPY TIME: 37 seconds. FINDINGS: 3 fluoroscopic spot images of the lumbar spine demonstrate posterior decompression and fusion from L3 through S1 with pedicle screws and rods. The hardware appears intact. Disc spaces are noted at L4-5 and L5-S1. IMPRESSION: Fluoroscopic assistance provided for L3-S1 posterior decompression and fusion. ACT 112: Negative or not required by law. Electronically signed by: Johnny Mueller M.D. 06/18/2021 11:20 AM Medications Administered Current Inpatient Medications Acetaminophen (Acetaminophen 500 Mg Tab) 1,000 mg PO Q8H PRN PRN Reason: MILD Pain Scale 1,2,3 & Pre PT Stop: 07/18/21 12:08 Al Hydrox/Mg Hydrox/Simethicone (Aluminum/Magnesium Susp 30 Ml Udc) 30 ml PO Q6H PRN PRN Reason: Dyspepsia Stop: 07/18/21 12:08 Allopurinol (Allopurinol 300 Mg Tab) 300 mg PO QAM ANDREEA Stop: 07/17/21 10:17 Last Admin: 06/18/21 08:58 Dose: Not Given Documented by: Bisacodyl (Bisacodyl 10 Mg Supp) 10 mg DE DAILY PRN PRN Reason: Constipation Stop: 07/18/21 12:08 Dextrose (Dextrose 50% 50 Ml Syringe) 25 - 50 ml IV UD PRN; Protocol PRN Reason: Hypoglycemia Protocol Stop: 07/18/21 12:29 Diphenhydramine HCl (Diphenhydramine Capsule 25 Mg Cap) 25 mg PO Q6H PRN PRN Reason: Allergic Rhinitis/Insomnia Stop: 07/18/21 12:08 Famotidine (Famotidine 20 Mg Tab) 20 mg PO Q12H PRN PRN Reason: Dyspepsia Stop: 07/18/21 12:08 Glucagon (Glucagon For Inj 1 Mg Vial) 1 mg IM UD PRN; Protocol PRN Reason: Hypoglycemia Protocol Stop: 07/18/21 12:29 Glucose (Glucose 40% Gel 15 Gm Tube) 15 - 30 gm PO UD PRN; Protocol PRN Reason: Hypoglycemia Protocol Stop: 07/18/21 12:29 Glucose (Glucose 10 Tabs/Tube) 4 - 8 tabs PO UD PRN; Protocol PRN Reason: Hypoglycemia Protocol Stop: 07/18/21 12:29 HCTZ/Losartan Potassium (Losartan/Hctz 50/12.5mg Tab) 1 tab PO QAM [facility] Stop: 07/17/21 10:17 Last Admin: 06/18/21 08:58 Dose: Not Given Documented by: Hydromorphone HCl (Hydromorphone Inj 0.5 Mg/0.5 Ml Syr) 0.5 mg IV Q3H PRN PRN Reason: MODERATE Pain (Scale 4,5,6) & Pre PT Stop: 07/02/21 12:08 Hydromorphone HCl (Hydromorphone Inj 1 Mg/Ml Syringe) 1 mg IV Q3H PRN PRN Reason: SEVERE Pain (Scale 7,8,9,10) Stop: 07/02/21 12:08 Hydroxyzine HCl (Hydroxyzine Hcl 25 Mg Tab) 25 mg PO Q8H PRN PRN Reason: Anxiety Stop: 07/18/21 12:08 Cefazolin Sodium (Ancef 3000mg) 72.5 mls @ 130 mls/hr IV PREOP ANDREEA; Protocol Stop: 06/19/21 05:59 Last Infusion: 06/18/21 12:18 Dose: Infused Documented by: Cefazolin Sodium (Ancef 2000mg) 2,000 mg in 15 mls @ 3.75 mls/min IV Q8H ANDREEA; Protocol Stop: 06/19/21 01:03 Sodium Chloride (Nss 1000ml) 1,000 mls @ 150 mls/hr IV .Q6H40M ANDREEA Stop: 07/18/21 12:08 Last Admin: 06/18/21 12:39 Dose: 150 mls/hr Documented by: Promethazine HCl 12.5 mg/ (Sodium Chloride) 50.5 mls @ 202 mls/hr IV Q6H PRN PRN Reason: Nausea &/or Vomiting Stop: 07/18/21 12:08 Acetaminophen (Ofirmev) 1,000 mg in 100 mls @ 400 mls/hr IV Q8H PRN PRN Reason: Pain Rating 1-3 & Pre PT Stop: 06/21/21 12:08 Dexamethasone 6 mg/ Syringe 1.5 mls @ 1 mls/min IV DAILY ANDREEA Stop: 06/21/21 09:02 Influenza Virus Vaccine Quadrival (Do Not Administer Flu Vaccine) 1 ea N/A PRN PRN PRN Reason: Notification Stop: 07/18/21 12:08 Ketorolac Tromethamine (Ketorolac 30 Mg/Ml Vial) 30 mg IV Q6 ANDREEA Stop: 06/19/21 06:01 Last Admin: 06/18/21 13:45 Dose: 30 mg Documented by: Lorazepam (Lorazepam 0.5 Mg Tab) 0.5 mg PO Q8H PRN PRN Reason: Sedation/Anxiety Stop: 07/18/21 12:08 Lorazepam (Lorazepam 2 Mg/1 Ml Vial) 0.5 mg IV Q8H PRN PRN Reason: Sedation/Anxiety Stop: 07/18/21 12:08 Magnesium Hydroxide (Magnesium Hydroxide Susp 30 Ml Udc) 30 ml PO Q24H PRN PRN Reason: Constipation Stop: 07/18/21 12:08 Metoclopramide HCl (Metoclopramide Hcl Inj 5 Mg/Ml 2 Ml Vial) 10 mg IV Q6H PRN PRN Reason: Nausea &/or Vomiting Stop: 07/18/21 12:08 Miscellaneous (Carbohydrates For Hypoglycemia ) 15 - 30 gm PO UD PRN PRN Reason: Hypoglycemia Treatment Stop: 07/18/21 12:29 Naloxone HCl (Naloxone Hcl 0.4 Mg/1 Ml Vial/Carp) 0.1 mg IV Q5M PRN PRN Reason: Oversedation/Resp depression Stop: 07/18/21 12:08 Ondansetron HCl (Ondansetron Inj 2 Mg/Ml 2 Ml Vial) 4 mg IV Q6H PRN PRN Reason: Nausea &/or Vomiting Stop: 07/18/21 12:08 Ondansetron HCl (Ondansetron 4 Mg Od Tab) 4 mg PO Q6H PRN PRN Reason: Nausea Stop: 07/18/21 12:08 Oxycodone HCl (Oxycodone Hcl Ir 5 Mg Tab (Immediate Release)) 5 - 10 mg PO Q4H PRN PRN Reason: Pain & Pre PT Stop: 07/02/21 12:08 Pneumococcal Polyvalent Vaccine (Do Not Administer Pneumococcal Vaccine) 1 ea N/A PRN PRN PRN Reason: Notification Stop: 07/18/21 12:08 Polyethylene Glycol (Polyethylene (Miralax) 17 Gm Pack) 17 gm PO Q6 ANDREEA Stop: 07/19/21 05:59 Senna/Docusate Sodium (Docusate Sodium/Senna 50/8.6mg Tab) 2 tab PO HS ANDREEA Stop: 07/18/21 20:59 Sodium Biphosphate/Sodium Phosphate (Sod Phosphate/Sod Biphosphate Enema 132 Ml Btl) 132 ml DE ONE PRN PRN Reason: Constipation Stop: 07/18/21 12:08 Tramadol HCl (Tramadol Hcl 50 Mg Tablet) 50 - 100 mg PO Q4H PRN PRN Reason: Moderate-Severe pain & Pre PT Stop: 07/18/21 12:08
[2021-06-18] MEDS: ceFAZolin 2000MG 2,000 MG/15 ML SYR IV SCH (17:25)
[2021-06-18] MEDS: DOCUSATE SODIUM/SENNA 50/8.6MG TAB PO SCH (21:45)
[2021-06-19] MEDS: KETOROLAC 30 MG/ML VIAL IV SCH ×2 (00:41→05:19)
[2021-06-19] MEDS: ceFAZolin 2000MG 2,000 MG/15 ML SYR IV SCH (00:41)
[2021-06-19] MEDS: SODIUM CHLORIDE 0.9% 1000ML 1,000 ML IV SCH (02:36)
[2021-06-19] MEDS: POLYETHYLENE (MIRALAX) 17 GM PACK PO SCH ×2 (05:19→12:15)
[2021-06-19 07:57] LABS: BUN Creatinine Ratio 20.4 (10-20); Calcium 7.4 mg/dl (8.5-10.1); Creatinine Clr Calc Pharmacy 120.4 ml/min; Est GFR (Non-African American) 94.1 ml/min; Potassium 4.1 mmol/L (3.5-5.1)
[2021-06-19 08:48] LABS: Hemoglobin 11.7 g/dL (14.0-18.0); Immature Granulocytes # (auto) 0.02 K/uL (0.00-0.02); Immature Granulocytes % (auto) 0.2 %; Lymphocytes # (auto) 1.21 K/uL (1.2-3.4); Mean Corpuscular Hemoglobin 30.5 pg (25-34); Mean Corpuscular Hgb Conc 34.4 g/dL (32-36); Mean Corpuscular Volume 88.5 fL (80-100); Mean Platelet Volume 9.8 fL (7.4-10.4); Monocytes # (auto) 1.13 K/uL (0.11-0.59); Monocytes % (auto) 10.3 %; Neutrophils # (auto) 8.61 K/uL (1.4-6.5); Neutrophils % (auto) 78.5 %; Platelet Count 181 K/uL (130-400); RDW Coefficient of Variation 13.4 % (11.5-14.5); RDW Standard Deviation 43.2 fL (36.4-46.3); Red Blood Count 3.84 M/uL (4.7-6.1); White Blood Count 10.97 K/uL (4.8-10.8)
[2021-06-19] MEDS: dexAMETHasone 6 MG in SYRINGE 0 ML IV SCH (10:13)
[2021-06-19] MEDS: allopurinoL 300 MG TAB PO SCH (10:13)
--- NOTE | 2021-06-19 11:04 | Orthopedic Progress Note ---
Date of Service June 19, 2021 Assessment & Plan (1) Neurogenic claudication due to lumbar spinal stenosis: Plan: This time continue physical therapy monitor his CAMILA output hopefully discharge home in the next few days. Admission and Anticipated Discharge Date Admission Date: June 17, 2021 Subjective Back pain controlled leg pain markedly improved Physical Exam Physical Exam: Patient is comfortable. Is good strength testing. Results & Data ([facility]) Vital Signs (Past 12 Hours) Vital Signs Temp Pulse Resp BP Pulse Ox 06/19/21 07:18 36.5 C 58 L 16 109/72 96 06/19/21 02:55 36.8 C 69 16 110/65 98
--- NOTE | 2021-06-19 12:38 | Hospitalist Progress Note ---
Date of Service June 19, 2021 Assessment & Plan (1) Spinal stenosis: Plan: Status post lumbar decompression fusion L3-S1 by Dr. Bee, POD #1 EBL 400 mL; CAMILA drain 495ml Tolerated procedure well Pain/wound management per orthopedic Activity and therapy as directed by orthopedics Encourage incentive spirometry and wean off oxygen as able Monitor hemoglobin, preop 13.0, hemoglobin 11.7 today Expected acute blood loss anemia in postoperative setting Preop hemoglobin 13.0, hemoglobin 11.7 today Continue to monitor CAMILA output, H&H in a.m. (2) Hypertension: Plan: Blood pressure remains on low side continue to Hold losartan/HCTZ Reevaluate in a.m. (3) Hx of gout: Plan: Continue allopurinol (4) Obesity (BMI 35.0-39.9 without comorbidity): Plan: BMI of 37.8, diet and exercise to be encouraged DVT ppx: teds, scds CODE: Full Dispo: From home, likely to remain in the hospital x 2 days. Patient was seen and examined in collaboration with, Dr. Mcclendon, please see addendum Thank you for this consultation. We will follow the patient with you during their hospital stay. You can reach a member of the [facility] Hospitalist Team 03/11 via hospitalist role on tiger text. Admission and Anticipated Discharge Date Admission Date: June 17, 2021 Subjective Pt was seen and examined in room 352-1. Follow-up lumbar surgery by Dr. Bee. He feels well this morning and offers no acute concerns. Is requesting Fung catheter to be removed. Denies fever, chills, sweats, lightheadedness, dizziness, chest pain, shortness of breath, nausea, vomiting, abdominal pain. He had 2 bowel movements this morning. He is tolerating diet. Review of Systems Review of Systems: All systems reviewed & are unremarkable except as noted in HPI & below Physical Exam Physical Exam: Gen: WD/WN, NAD, A&O x3 HEENT: Normocephalic, atraumatic, conjunctivae moist, sclerae anicteric, mucous membranes moist. Lung: Clear to Auscultation bilaterally, no wheezes/rales/rhonchi Heart: Regular rate, regular rhythm, no murmurs, rubs, or gallops Abdomen: Soft, NT, ND +BS x 4 Extremities: No edema, lumbar dressing CDI, CAMILA drain with serosanguineous drainage Skin: Warm, no rash, negative turgor. Results & Data Results & Data ([facility]) Vital Signs (Past 12 Hours) Vital Signs Temp Pulse Resp BP Pulse Ox 06/19/21 07:18 36.5 C 58 L 16 109/72 96 06/19/21 02:55 36.8 C 69 16 110/65 98 Laboratory Results Short CBC 06/19/21 Range/Units 07:23 WBC 10.97 H (4.8-10.8) K/uL Hgb 11.7 L D (14.0-18.0) g/dL Hct 34.0 L (42-52) % Plt Count 181 (130-400) K/uL BMP 06/19/21 07:23 Sodium 136 Potassium 4.1 Chloride 106 Carbon Dioxide 25 BUN 19 Creatinine 0.93 Glucose 122 H Calcium 7.4 L Medications Administered Current Inpatient Medications Acetaminophen (Acetaminophen 500 Mg Tab) 1,000 mg PO Q8H PRN PRN Reason: MILD Pain Scale 1,2,3 & Pre PT Stop: 07/18/21 12:08 Al Hydrox/Mg Hydrox/Simethicone (Aluminum/Magnesium Susp 30 Ml Udc) 30 ml PO Q6H PRN PRN Reason: Dyspepsia Stop: 07/18/21 12:08 Allopurinol (Allopurinol 300 Mg Tab) 300 mg PO QAM [facility] Stop: 07/17/21 10:17 Last Admin: 06/19/21 10:13 Dose: 300 mg Documented by: Bisacodyl (Bisacodyl 10 Mg Supp) 10 mg DC DAILY PRN PRN Reason: Constipation Stop: 07/18/21 12:08 Dextrose (Dextrose 50% 50 Ml Syringe) 25 - 50 ml IV UD PRN; Protocol PRN Reason: Hypoglycemia Protocol Stop: 07/18/21 12:29 Diphenhydramine HCl (Diphenhydramine Capsule 25 Mg Cap) 25 mg PO Q6H PRN PRN Reason: Allergic Rhinitis/Insomnia Stop: 07/18/21 12:08 Famotidine (Famotidine 20 Mg Tab) 20 mg PO Q12H PRN PRN Reason: Dyspepsia Stop: 07/18/21 12:08 Glucagon (Glucagon For Inj 1 Mg Vial) 1 mg IM UD PRN; Protocol PRN Reason: Hypoglycemia Protocol Stop: 07/18/21 12:29 Glucose (Glucose 40% Gel 15 Gm Tube) 15 - 30 gm PO UD PRN; Protocol PRN Reason: Hypoglycemia Protocol Stop: 07/18/21 12:29 Glucose (Glucose 10 Tabs/Tube) 4 - 8 tabs PO UD PRN; Protocol PRN Reason: Hypoglycemia Protocol Stop: 07/18/21 12:29 HCTZ/Losartan Potassium (Losartan/Hctz 50/12.5mg Tab) 1 tab PO QAM ANDREEA Stop: 07/17/21 10:17 Last Admin: 06/18/21 08:58 Dose: Not Given Documented by: Hydromorphone HCl (Hydromorphone Inj 0.5 Mg/0.5 Ml Syr) 0.5 mg IV Q3H PRN PRN Reason: MODERATE Pain (Scale 4,5,6) & Pre PT Stop: 07/02/21 12:08 Hydromorphone HCl (Hydromorphone Inj 1 Mg/Ml Syringe) 1 mg IV Q3H PRN PRN Reason: SEVERE Pain (Scale 7,8,9,10) Stop: 07/02/21 12:08 Hydroxyzine HCl (Hydroxyzine Hcl 25 Mg Tab) 25 mg PO Q8H PRN PRN Reason: Anxiety Stop: 07/18/21 12:08 Promethazine HCl 12.5 mg/ (Sodium Chloride) 50.5 mls @ 202 mls/hr IV Q6H PRN PRN Reason: Nausea &/or Vomiting Stop: 07/18/21 12:08 Acetaminophen (Ofirmev) 1,000 mg in 100 mls @ 400 mls/hr IV Q8H PRN PRN Reason: Pain Rating 1-3 & Pre PT Stop: 06/21/21 12:08 Dexamethasone 6 mg/ Syringe 1.5 mls @ 1 mls/min IV DAILY ANDREEA Stop: 06/21/21 09:02 Last Admin: 06/19/21 10:13 Dose: 1 mls/min Documented by: Influenza Virus Vaccine Quadrival (Do Not Administer Flu Vaccine) 1 ea N/A PRN PRN PRN Reason: Notification Stop: 07/18/21 12:08 Lorazepam (Lorazepam 0.5 Mg Tab) 0.5 mg PO Q8H PRN PRN Reason: Sedation/Anxiety Stop: 07/18/21 12:08 Lorazepam (Lorazepam 2 Mg/1 Ml Vial) 0.5 mg IV Q8H PRN PRN Reason: Sedation/Anxiety Stop: 07/18/21 12:08 Magnesium Hydroxide (Magnesium Hydroxide Susp 30 Ml Udc) 30 ml PO Q24H PRN PRN Reason: Constipation Stop: 07/18/21 12:08 Metoclopramide HCl (Metoclopramide Hcl Inj 5 Mg/Ml 2 Ml Vial) 10 mg IV Q6H PRN PRN Reason: Nausea &/or Vomiting Stop: 07/18/21 12:08 Miscellaneous (Carbohydrates For Hypoglycemia ) 15 - 30 gm PO UD PRN PRN Reason: Hypoglycemia Treatment Stop: 07/18/21 12:29 Naloxone HCl (Naloxone Hcl 0.4 Mg/1 Ml Vial/Carp) 0.1 mg IV Q5M PRN PRN Reason: Oversedation/Resp depression Stop: 07/18/21 12:08 Ondansetron HCl (Ondansetron Inj 2 Mg/Ml 2 Ml Vial) 4 mg IV Q6H PRN PRN Reason: Nausea &/or Vomiting Stop: 07/18/21 12:08 Ondansetron HCl (Ondansetron 4 Mg Od Tab) 4 mg PO Q6H PRN PRN Reason: Nausea Stop: 07/18/21 12:08 Oxycodone HCl (Oxycodone Hcl Ir 5 Mg Tab (Immediate Release)) 5 - 10 mg PO Q4H PRN PRN Reason: Pain & Pre PT Stop: 07/02/21 12:08 Pneumococcal Polyvalent Vaccine (Do Not Administer Pneumococcal Vaccine) 1 ea N/A PRN PRN PRN Reason: Notification Stop: 07/18/21 12:08 Senna/Docusate Sodium (Docusate Sodium/Senna 50/8.6mg Tab) 2 tab PO HS ANDREEA Stop: 07/18/21 20:59 Last Admin: 06/18/21 21:45 Dose: 2 tab Documented by: Sodium Biphosphate/Sodium Phosphate (Sod Phosphate/Sod Biphosphate Enema 132 Ml Btl) 132 ml DC ONE PRN PRN Reason: Constipation Stop: 07/18/21 12:08 Tramadol HCl (Tramadol Hcl 50 Mg Tablet) 50 - 100 mg PO Q4H PRN PRN Reason: Moderate-Severe pain & Pre PT Stop: 07/18/21 12:08
[2021-06-19] MEDS: DOCUSATE SODIUM/SENNA 50/8.6MG TAB PO SCH (21:06)
[2021-06-20] MEDS: traMADol HCL 50 MG TABLET PO PRN ×2 (05:51→20:51)
[2021-06-20 06:41] LABS: Basophils # (auto) 0.01 K/uL (0-0.2); Basophils % (auto) 0.1 %; Hematocrit (blood only) 32.3 % (42-52); Hemoglobin 11.1 g/dL (14.0-18.0); Immature Granulocytes # (auto) 0.02 K/uL (0.00-0.02); Immature Granulocytes % (auto) 0.2 %; Lymphocytes # (auto) 1.99 K/uL (1.2-3.4); Lymphocytes % (auto) 19.7 %; Mean Corpuscular Hemoglobin 30.7 pg (25-34); Mean Corpuscular Hgb Conc 34.4 g/dL (32-36); Mean Corpuscular Volume 89.2 fL (80-100); Mean Platelet Volume 10.4 fL (7.4-10.4); Monocytes % (auto) 11.9 %; Neutrophils # (auto) 6.88 K/uL (1.4-6.5); Neutrophils % (auto) 68.1 %; Platelet Count 171 K/uL (130-400); RDW Coefficient of Variation 13.4 % (11.5-14.5); RDW Standard Deviation 44.2 fL (36.4-46.3); Red Blood Count 3.62 M/uL (4.7-6.1)
[2021-06-20 06:55] LABS: BUN Creatinine Ratio 20.2 (10-20); Calcium 8.3 mg/dl (8.5-10.1); Creatinine Clr Calc Pharmacy 125.8 ml/min; Est GFR (African American) 113.9 ml/min; Est GFR (Non-African American) 98.3 ml/min
[2021-06-20] MEDS: allopurinoL 300 MG TAB PO SCH (08:29)
[2021-06-20] MEDS: dexAMETHasone 6 MG in SYRINGE 0 ML IV SCH (08:29)
--- NOTE | 2021-06-20 12:09 | Orthopedic Progress Note ---
Date of Service June 20, 2021 Assessment & Plan (1) Neurogenic claudication due to lumbar spinal stenosis: Plan: This time we will continue physical therapy monitor his CAMILA output anticipate discharge home tomorrow. Admission and Anticipated Discharge Date Admission Date: June 17, 2021 Subjective Back pain is controlled leg symptoms markedly improved Physical Exam Physical Exam: Patient is in bed. He is comfortable this time. Good strength testing. Results & Data ([facility]) Vital Signs (Past 12 Hours) Vital Signs Temp Pulse Resp BP Pulse Ox 06/20/21 07:47 36.6 C 58 L 16 132/83 96
[2021-06-20] MEDS: POLYETHYLENE (MIRALAX) 17 GM PACK PO SCH (13:28)
--- NOTE | 2021-06-20 16:22 | Hospitalist Progress Note ---
Date of Service June 20, 2021 Assessment & Plan (1) Spinal stenosis: Plan: POD #2 lumbar decompression fusion L3-S1 by Dr. Bee EBL 400 mL; CAMILA drain 810ml to date Tolerated procedure well Pain/wound management per orthopedic Activity and therapy as directed by orthopedics Bowel regimen Expected acute blood loss anemia in postoperative setting Preop Hgb 13.0 --> 11.1 Monitor H&H, transfuse as needed (2) Hypertension: Plan: Losartan/HCTZ initially held due to borderline low BP BP improved, resume losartan/HCTZ (3) Hx of gout: Plan: Continue allopurinol (4) Obesity (BMI 35.0-39.9 without comorbidity): Plan: BMI of 37.8, diet and exercise to be encouraged DVT ppx TEDs/SCDs as per spine Ortho Thank you for this consultation. We will follow the patient with you during their hospital stay. You can reach a member of the [facility] Hospitalist Team 03/11 via hospitalist role on tiger text. Admission and Anticipated Discharge Date Admission Date: June 17, 2021 Subjective Patient seen and examined. Follow-up for medical management. Patient reports pain is well controlled. Ambulating to bathroom without difficulty. No chest pain or shortness of breath. Denies abdominal pain or nausea. Urinating without difficulty. No BM however + flatus. Review of Systems Review of Systems: ROS per HPI, all other systems reviewed and negative Physical Exam Constitutional: WD/WN, vitals as above no acute distress Respiratory: normal respiratory effort, lungs clear to auscultation Cardiovascular: Rate/Rhythm: regular rate and regular rhythm Vessels: normal peripheral pulses Extremities: no edema Gastrointestinal (Abdomen): Percussion/Palpation: abdomen soft; abdomen nontender Musculoskeletal: S/p back surgery, pedal pushes and pull strong bilaterally, drain in place draining bloody drainage Skin: no rashes, warm and dry Neurologic: no focal motor deficits Psychiatric: A+Ox3, euthymic affect Results & Data Results & Data ([facility]) Vital Signs (Past 12 Hours) Vital Signs Temp Pulse Resp BP Pulse Ox 06/20/21 15:57 36.8 C 61 16 151/83 H 97 06/20/21 07:47 36.6 C 58 L 16 132/83 96 Laboratory Results Short CBC 06/20/21 Range/Units 05:41 WBC 10.10 (4.8-10.8) K/uL Hgb 11.1 L (14.0-18.0) g/dL Hct 32.3 L (42-52) % Plt Count 171 (130-400) K/uL [facility] 06/20/21 05:41 Sodium 140 Potassium 4.0 Chloride 109 H Carbon Dioxide 26 BUN 18 Creatinine 0.89 Glucose 111 H Calcium 8.3 L
[2021-06-20] MEDS: DOCUSATE SODIUM/SENNA 50/8.6MG TAB PO SCH (20:51)
[2021-06-21 06:24] LABS: Hematocrit (blood only) 32.8 % (42-52); Hemoglobin 11.1 g/dL (14.0-18.0)
[2021-06-21] MEDS: allopurinoL 300 MG TAB PO SCH (07:55)
[2021-06-21] MEDS: POLYETHYLENE (MIRALAX) 17 GM PACK PO SCH (07:55)
[2021-06-21] MEDS: dexAMETHasone 6 MG in SYRINGE 0 ML IV SCH (07:55)
[2021-06-21] MEDS: LOSARTAN/HCTZ 50/12.5MG TAB PO SCH (09:32)
--- NOTE | 2021-06-21 13:48 | Discharge Summary ---
Date of Service June 21, 2021 Admission HPI Per Admitting Provider This is a 51-year-old male that is well-known to me. He progresses with severe decline in status over the past several days. He states he is fallen in the past few days secondary to leg weakness. Describes pain at lumbosacral junction rating down the lower extremities from the buttock posterior thigh below the knee into the feet. Markedly exacerbated with prolonged standing and walking. He can only ambulate short distances and must lean forward to obtain any relief. Of concern he is noting significant numbness in the perineal area that when he stands for any even short period of time. He is describing urinary retention. He has failed extensive course of nonoperative care over the past year including physical therapy and lumbar injections. He is now progressed to the point that he is no longer able to function. Principal Diagnosis Lumbar spinal stenosis with neurogenic claudication Discharge Data Allergies Allergy/AdvReac Type Severity Reaction Status Date / Time aspirin Allergy Intermediate Hives Verified 06/17/21 07:48 Consultations 06/17/21 08:15 ED Decision to Admit Stat 06/17/21 10:18 Consult Internal Medicine Routine Procedures Performed Operation Date: 06/18/21 07:45 Actual Procedures p L3-S1 Lumbar Decompression Fusion, with Spinal Cord Monitoring(Not Applicable) - Gary Bee DO Ordered Studies 06/17/21 07:50 MR lumbar spine wo con Stat 06/18/21 07:45 FL lumbar spine 2-3V Routine Hospital Course (1) Neurogenic claudication due to lumbar spinal stenosis: Patient was admitted with severe back pain bilateral leg pain and numbness with perineal numbness with ambulation. Subsequently underwent urgent multilevel lumbar decompression fusion. Patient tolerated so was taken to orthopedic for postoperative. Postop day 1 his symptoms markedly improved he is ambulating well. Progressive postop day #2 on postop day #3 CAMILA drain decreased probably. Pain well controlled. Subsequently discharged home. Discharge orders instructions found the chart for further review. Total Time Total Time Spent Total Time Spent (In Minutes): 20 minutes Discharge Plan Discharge Items Patient Disposition: Home - Self-Care Reason For Visit: leg pain and weakness Discharge Diagnosis: Spinal stenosis with radiculopathy Activity: As commented below Non-emergency contact: Primary Care Provider Call non-emergency contact if: you have any medication questions Follow-up/Referrals: Gudino,Medina M., DO [Primary Care Provider] - Diet: Regular Addtl Attending Provider Instructions: ACTIVITY RECOMMENDATIONS: SELF CARE INSTRUCTIONS AFTER THORACIC/LUMBAR FUSIONS 1. You may walk to your tolerance. It is good exercise for your legs and back. Expect some back and intermittent leg aches and pains. 2. You may perform "counter-top" level activities (make a sandwich, titi with a project, etc.). 3. No bending or lifting of more than 10 pounds or back twisting of any nature (roll like a log when turning in bed). 4. You may ride in a car for 20-30 minutes at a time. No driving until after your first visit with your doctor. 5. Frequent changes of position and restricting sitting to 30 minutes at a time will help limit the amount of back spasms and stiffness you may experience. 6. You may discontinue the use of ambulatory aids (cane, crutches, etc.) once your strength and confidence allow. 7. You may molded parts inspector the shower and let water strike your incision when you arrive home at least once daily. Do not take a tub bath, sit in a hot tub or go into a swimming pool until after your first recheck in the office. SPECIAL CARE INSTRUCTIONS: VERY IMPORTANT TO READ AND REVIEW A. Your surgical incision has been closed with a cosmetic suture under the skin that will dissolve in about 6 weeks. In 14 days, you can use a pair of clean scissors and cut the suture that is left outside of the skin at the ends of your incision. 1. The small skin tapes can be removed 7 days after surgery if they have not fallen off by that point. 2. You may keep the wound open to air as much as possible to promote healing after post-op day number 5 unless told otherwise by your doctor. 3. If you think the wound looks like it is becoming infected (redness or worsening drainage) and/or you are experiencing fever, chill or worsening back pain and muscle spasms, contact the office so that we may evaluate you as soon as possible. B. Complications are uncommon, but please contact us if you have any signs or symptoms of: 1. wound infection (fever higher than 102.5 degrees F, redness, separation of wound, drainage, or increasing pain from the incision) 2. blood clots in legs (pain, swelling, redness and warmth in legs) 3. urinary tract infection (fever higher than 102.5 degrees F, burning upon urination or increased frequency of urination) 4. nerve problems (inability to walk on your toes or heels, numbness, loss of bowel or bladder control) 5. any other symptoms that concern you C. Please call the office at if you have any concerns or questions about your operation or recovery. D. No smoking! Smoking drastically decreases the chance of a solid fusion. E. Do not take any anti-inflammatory medications (Indocin, Advil, Motrin, Aspirin, Naprosyn, etc.) as these may inhibit the chance of a solid fusion. Tylenol is okay to take for pain. MANAGING PAIN AFTER SPINAL SURGERY 1. Narcotic medication is intended for short-term use and will be provided for surgical pain. Surgical pain usually lasts for a period of 4-6 weeks. Narcotic medication includes Percocet, Vicodin, Darvocet, Tylenol #3 or Lortab. 2. Longer-term pain is more appropriately treated with non-narcotic medication such as Tylenol ES. 3. Muscle spasm is not appropriately treated with narcotics. Muscle relaxers such as Soma, Flexeril or Skelaxin can be used along with Tylenol ES. 4. Remember that we all live with some "aches and pains". This is not unusual or uncommon after an injury or as we get older. a. Back pain is expected and may include muscle spasms for 4 to 6 weeks after surgery. The pain should gradually improve. If the pain worsens for no apparent reason, please contact the office. b. Intermittent leg pain may also be experienced and should not be concerned about unless it worsens for no apparent reason. If so, please contact the office. 5. We will provide appropriate medication within the normal guidelines of their prescribed use. We will also be very cautious and aware of potential abuse and extended duration of patients' medication needs. a. Pain medications are for your comfort and to assist with sleep and rest so that the tissue can heal. They are not provided in order to return to normal activity and should not be used through the day. To do so or worsening pain at night can result from ongoing tissue damage and development of tolerance to the prescribed medicine. 6. Please allow 2-3 days to process refills. Prescriptions will not be mailed but must be picked up at the office. FOLLOW UP VISIT: Keep your scheduled follow-up appointment. Any questions, please call the office at . Pending Studies at Discharge: No Stand-Alone Forms: My [facility], Smoking Cessation Medications and DC Order Prescriptions: New tramadol 50 mg tablet 50 mg PO Q6H PRN (Reason: pain, moderate) Qty: 30 RF: 0 oxycodone 5 mg tablet 5 mg PO Q6H PRN (Reason: pain, severe) Qty: 30 RF: 0 Continued allopurinol 100 mg Tablet 100 mg PO QAM RF: 0 allopurinol 300 mg Tablet 300 mg PO QAM RF: 0 losartan-hydrochlorothiazide 50-12.5 mg Tablet 1 tab PO QAM RF: 0 Discharge Orders: Discharge Order (Routine); Ordered 06/21/21 Ordered By: Gary Becker/Other Patient Handouts: Preventing Deep Vein Thrombosis Admission Data Admit Date/Time: 06/17/21 07:58 Attending Provider: Gary Bee Admit Provider: Gary Bee Primary Care Provider: Medina Gudino Other Providers: Gary Bee ; Amanda Stephen ; Pinky Patel ; Titi Mcclendon Other Interventions: Discharge Summary Assessment (RN) Last Done: 06/21/21 09:43
--- NOTE | 2021-06-21 14:59 | Hospitalist Progress Note ---
Date of Service June 21, 2021 Assessment & Plan (1) Spinal stenosis: Plan: POD #3 lumbar decompression fusion L3-S1 by Dr. Bee EBL 400 mL; CAMILA drain 925ml to date Tolerated procedure well Pain/wound management per orthopedic Activity and therapy as directed by orthopedics Bowel regimen No contraindication to discharge today Expected acute blood loss anemia in postoperative setting Preop Hgb 13.0 --> 11.1 --> 11.1 Monitor H&H, transfuse as needed (2) Hypertension: Plan: Losartan/HCTZ initially held due to borderline low BP BP improved, losartan/HCTZ resumed on 06/20 (3) Hx of gout: Plan: Continue allopurinol (4) Obesity (BMI 35.0-39.9 without comorbidity): Plan: BMI of 37.8, diet and exercise to be encouraged DVT ppx TEDs/SCDs as per spine Ortho Thank you for this consultation. We will follow the patient with you during their hospital stay. You can reach a member of the [facility] Hospitalist Team 03/11 via hospitalist role on tiger text. Admission and Anticipated Discharge Date Admission Date: June 17, 2021 Subjective Patient seen and examined. Follow-up for post op medical management. Sitting up in the chair, eager to be discharged. Pain well controlled. Ambulating without difficulty. Denies chest pain or shortness of breath. No abdominal pain or nausea. Urinating and + BM without difficulty. Review of Systems Review of Systems: ROS per HPI, all other systems reviewed and negative Physical Exam Constitutional: WD/WN, vitals as above Respiratory: normal respiratory effort, lungs clear to auscultation Cardiovascular: Rate/Rhythm: regular rate and regular rhythm Vessels: normal peripheral pulses Extremities: no edema Gastrointestinal (Abdomen): Percussion/Palpation: abdomen soft; abdomen nontender Musculoskeletal: S/p back surgery, dressing CDI, drain in place draining a small amount of serosanguineous drainage, pedal pushes and pull strong bilaterally Skin: no rashes, warm and dry Neurologic: no focal motor deficits Psychiatric: A+Ox3, euthymic affect Results & Data Results & Data ([facility]) Vital Signs (Past 12 Hours) Vital Signs Temp Pulse Resp BP Pulse Ox 06/21/21 09:43 36.7 C 48 L 16 149/92 H 98 06/21/21 07:45 36.7 C 48 L 16 149/92 H 98 Laboratory Results Short CBC 06/21/21 Range/Units 06:00 Hgb 11.1 L (14.0-18.0) g/dL Hct 32.8 L (42-52) %
== END 2021-06-21 14:17 | disposition home or self-care (01) | DRG 454 ==
LOC: ED 06:54 → 3W 07:58